=== PATIENT | female | born 1975 | race Caucasian/White ===

== ENCOUNTER 2018-04-16 09:37 | Emergency (ER) | payer OTHER ==
[~2018-04-16] VITALS: Ht 154.9 cm; Wt 94.8 kg
[2018-04-16 09:39] VITALS: BP 132/73
[2018-04-16] MEDS ORDERED: IV NORMAL SALINE 1000ML BAG 1,000 ML IV ONE (10:15)
[2018-04-16 10:44] LABS: BILIRUBIN,URINE NEGATIVE (NEG); CLARITY,URINE CLEAR; COLOR,URINE YELLOW; NITRITE,URINE NEGATIVE (NEG); PH,URINE 5.5; PROTEIN,URINE NEGATIVE (NEG-TRACE); UROBILINOGEN,URINE 0.2 mg/dL (0.2 mg/dL)
[2018-04-16 10:54] LABS: BASO # 0.1 x10^3/uL (0.0-0.2); BASO % 1 % (0-3); EOS # 0.3 x10^3/uL (0.0-0.7); EOS % 3 % (0-3); HEMATOCRIT 40.7 % (36.0-47.0); HEMOGLOBIN 14.2 g/dL (12.0-15.5); LYMPH % 19 % (24-48); MEAN CORPUSCULAR HEMOGLOBIN 31 pg (25-35); MEAN CORPUSCULAR HGB CONC 35 g/dL (31-37); MEAN CORPUSCULAR VOLUME 88 fL (79-100); MONO # 0.7 x10^3/uL (0.0-1.1); MONO % 6 % (0-9); NEUT # 7.6 x10^3uL (1.8-7.7); NEUT % 71 % (31-73); PLATELET COUNT 274 x10^3/uL (140-400); RED BLOOD COUNT 4.65 x10^6/uL (3.50-5.40); WHITE BLOOD COUNT 10.7 x10^3/uL (4.0-11.0)
[2018-04-16 11:04] LABS: CALCIUM 10.1 mg/dL (8.5-10.1); CREATININE 0.7 mg/dL (0.6-1.0); GFR 92.7
[2018-04-16 11:13] LABS: ALBUMIN 3.9 g/dL (3.4-5.0); TOTAL BILIRUBIN 0.6 mg/dL (0.2-1.0)
[2018-04-16 11:17] LABS: BACTERIA,URINE FEW /HPF (0-FEW); RBC,URINE 0 /HPF (0-2); SQUAMOUS EPITHELIAL CELL,UR FEW /LPF; WBC,URINE 0 /HPF (0-4)
--- NOTE | 2018-04-16 12:08 | RAD ---
Abdomen series including PA chest 04/16/2018. Reason for exam: Diarrhea and back pain. The chest film is compared with a study done on 02/28/2012. No free air is seen. Gas is present in a mixture of large and small bowel. There are some air-fluid levels on the upright view, but at least some of these are in the colon, consistent with a history of diarrhea. There is no evidence of obstruction. No abnormal masses or gas collections are seen. A single view of the chest shows no infiltrate or effusion. Heart size and pulmonary vascularity appear normal. IMPRESSION: Nonobstructive gas pattern. Lumbar spine 2 views: Alignment is normal. There is no loss of vertebral body height or other evidence for fracture. The intervertebral discs are not significantly narrowed. No destructive process is seen. IMPRESSION: No acute abnormality. Electronically signed by: Horacio Alcantar Jr., MD (04/16/2018 12:04 PM) [facility] [place]
--- NOTE | 2018-04-16 12:11 | PHYS DOC ---
Past Medical History Past Medical History: Diabetes-Type II, GERD, High Cholesterol, Other Additional Past Medical Histor: BLE NEUROPATHY Past Surgical History: Hysterectomy, Other Additional Past Surgical Histo: LEFT SHOULDER ROTATOR CUFF REPAIR Alcohol Use: None Drug Use: None Adult General Chief Complaint Chief Complaint: DIARRHEA HPI HPI Patient is a 42 year old [f__sex] who presents with [] Review of Systems Review of Systems Constitutional: Denies fever or chills [] Eyes: Denies change in visual acuity, redness, or eye pain [] HENT: Denies nasal congestion or sore throat [] Respiratory: Denies cough or shortness of breath [] Cardiovascular: No additional information not addressed in HPI [] GI: Denies abdominal pain, nausea, vomiting, bloody stools or diarrhea [] : Denies dysuria or hematuria [] Musculoskeletal: Denies back pain or joint pain [] Integument: Denies rash or skin lesions [] Neurologic: Denies headache, focal weakness or sensory changes [] Endocrine: Denies polyuria or polydipsia [] All other systems were reviewed and found to be within normal limits, except as documented in this note. Current Medications Current Medications Current Medications Medications (Trade) Dose Ordered Sig/Eusebio Start Time Stop Time Status Last Admin Dose Admin Sodium Chloride 1,000 ml @ 1,000 mls/hr 1X ONCE 04/16/18 10:15 04/16/18 11:14 DC 04/16/18 10:36 1,000 MLS/HR Allergies Allergies Allergies Coded Allergies Type Severity Reaction Last Updated Verified metoclopramide Allergy Intermediate PARANOID 04/16/18 Yes moxifloxacin Allergy Intermediate HIVES 04/16/18 Yes Physical Exam Physical Exam Constitutional: Well developed, well nourished, no acute distress, non-toxic appearance. [] HENT: Normocephalic, atraumatic, bilateral external ears normal, oropharynx moist, no oral exudates, nose normal. [] Eyes: PERRLA, EOMI, conjunctiva normal, no discharge. [] Neck: Normal range of motion, no tenderness, supple, no stridor. [] Cardiovascular:Heart rate regular rhythm, no murmur [] Lungs & Thorax: Bilateral breath sounds clear to auscultation [] Abdomen: Bowel sounds normal, soft, no tenderness, no masses, no pulsatile masses. [] Skin: Warm, dry, no erythema, no rash. [] Back: No tenderness, no CVA tenderness. [] Extremities: No tenderness, no cyanosis, no clubbing, ROM intact, no edema. [] Neurologic: Alert and oriented X 3, normal motor function, normal sensory function, no focal deficits noted. [] Psychologic: Affect normal, judgement normal, mood normal. [] Current Patient Data Vital Signs Vital Signs Date Time Temp Pulse Resp B/P (MAP) Pulse Ox O2 Delivery O2 Flow Rate FiO2 04/16/18 09:39 98.6 84 14 132/73 (92) 99 Room Air 98.6 Lab Values Laboratory Tests Test 04/16/18 10:29 04/16/18 10:30 Urine Collection Type Void Urine Color Yellow Urine Clarity Clear Urine pH 5.5 Urine Specific [place] 1.010 Urine Protein Negative mg/dL (NEG-TRACE) Urine Glucose (UA) Negative mg/dL (NEG) Urine Ketones (Stick) Negative mg/dL (NEG) Urine Blood Negative (NEG) Urine Nitrite Negative (NEG) Urine Bilirubin Negative (NEG) Urine Urobilinogen Dipstick 0.2 mg/dL (0.2 mg/dL) Urine Leukocyte Esterase Negative (NEG) Urine RBC 0 /HPF (0-2) Urine WBC 0 /HPF (0-4) Urine Squamous Epithelial Cells Few /LPF Urine Bacteria Few /HPF (0-FEW) White Blood Count 10.7 x10^3/uL (4.0-11.0) Red Blood Count 4.65 x10^6/uL (3.50-5.40) Hemoglobin 14.2 g/dL (12.0-15.5) Hematocrit 40.7 % (36.0-47.0) Mean Corpuscular Volume 88 fL (79-100) Mean Corpuscular Hemoglobin 31 pg (25-35) Mean Corpuscular Hemoglobin Concent 35 g/dL (31-37) Red Cell Distribution Width 13.0 % (11.5-14.5) Platelet Count 274 x10^3/uL (140-400) Neutrophils (%) (Auto) 71 % (31-73) Lymphocytes (%) (Auto) 19 % (24-48) L Monocytes (%) (Auto) 6 % (0-9) Eosinophils (%) (Auto) 3 % (0-3) Basophils (%) (Auto) 1 % (0-3) Neutrophils # (Auto) 7.6 x10^3uL (1.8-7.7) Lymphocytes # (Auto) 2.0 x10^3/uL (1.0-4.8) Monocytes # (Auto) 0.7 x10^3/uL (0.0-1.1) Eosinophils # (Auto) 0.3 x10^3/uL (0.0-0.7) Basophils # (Auto) 0.1 x10^3/uL (0.0-0.2) Sodium Level 141 mmol/L (136-145) Potassium Level 4.0 mmol/L (3.5-5.1) Chloride Level 105 mmol/L (98-107) Carbon Dioxide Level 23 mmol/L (21-32) Anion Gap 13 (6-14) Blood Urea Nitrogen 9 mg/dL (7-20) Creatinine 0.7 mg/dL (0.6-1.0) Estimated GFR (Cockcroft-Gault) 92.7 BUN/Creatinine Ratio 13 (6-20) Glucose Level 119 mg/dL (70-99) H Calcium Level 10.1 mg/dL (8.5-10.1) Total Bilirubin 0.6 mg/dL (0.2-1.0) Aspartate Amino Transferase (AST) 58 U/L (15-37) H Alanine Aminotransferase (ALT) 87 U/L (14-59) H Alkaline Phosphatase 96 U/L (46-116) Total Protein 8.0 g/dL (6.4-8.2) Albumin 3.9 g/dL (3.4-5.0) Albumin/Globulin Ratio 1.0 (1.0-1.7) Laboratory Tests 04/16/18 10:30 Laboratory Tests 04/16/18 10:30 EKG EKG [] Radiology/Procedures Radiology/Procedures []PATIENT: MXAIMILIAN ARCINIEGA IACCOUNT: [id number]#: [id number] : 1975 LOCATION: ER AGE: 42 SEX: F EXAM STATUS: REG ER ORD. PHYSICIAN: OSCAR BEJARANO APRN REASON: back pain, diarrhea PROCEDURE: ACUTE ABDOMEN SERIES Abdomen series including PA chest 04/16/2018. Reason for exam: Diarrhea and back pain. The chest film is compared with a study done on 02/28/2012. No free air is seen. Gas is present in a mixture of large and small bowel. There are some air-fluid levels on the upright view, but at least some of these are in the colon, consistent with a history of diarrhea. There is no evidence of obstruction. No abnormal masses or gas collections are seen. A single view of the chest shows no infiltrate or effusion. Heart size and pulmonary vascularity appear normal. IMPRESSION: Nonobstructive gas pattern. Lumbar spine 2 views: Alignment is normal. There is no loss of vertebral body height or other evidence for fracture. The intervertebral discs are not significantly narrowed. No destructive process is seen. IMPRESSION: No acute abnormality. Electronically signed by: Njama Alcantar Jr., MD (04/16/2018 12:04 PM) [facility] [place] DICTATED and SIGNED BY: NAJMA ALCANTAR Jr, MD DATE: 04/16/18 1202 Course & Med Decision Making Course & Med Decision Making Pertinent Labs and Imaging studies reviewed. (See chart for details) [] Dragon Disclaimer Dragon Disclaimer This electronic medical record was generated, in whole or in part, using a voice recognition dictation system. Departure Departure Impression: Primary Impression: Diarrhea Disposition: 01 HOME, SELF-CARE Condition: STABLE Referrals: OBEY LAMB MD (PCP) Patient Instructions: Diarrhea Additional Instructions: You may try taking [id number] Imodium to help with symptom relief. We did do cultures of your stool and we will call if there is a positive result. Continue to take your home medications as directed. Follow up with your primary care provider in 2 days if not improving or return to the emergency department if worsening. OSCAR BEJARANO APRN Apr 16, 2018 12:11
== END 2018-04-16 12:59 | disposition home or self-care (01) ==
LOC: ER 09:37
DX: R19.7 Diarrhea, unspecified (principal); E11.40 Type 2 diabetes mellitus with diabetic neuropathy, unspecified; K21.9 Gastro-esophageal reflux disease without esophagitis; E78.00 Pure hypercholesterolemia, unspecified; Z90.710 Acquired absence of both cervix and uterus; Z88.1 Allergy status to other antibiotic agents
CPT/HCPCS: 36415; 72100; 74022; 80053; 81001; 85025; 87045; 96360; 99285; J7030

== ENCOUNTER 2019-08-01 13:27 | Emergency (ER) | payer OTHER ==
[~2019-08-01] VITALS: Ht 154.9 cm; Wt 90.0 kg
[2019-08-01 15:02] VITALS: BP 151/82
[2019-08-01] MEDS ORDERED: DICYCLOMINE HCL 10 MG CAPSULE PO STA (15:51)
[2019-08-01] MEDS ORDERED: ONDANSETRON PF 4 MG/2 ML VIAL. IV ONE (16:00)
[2019-08-01] MEDS ORDERED: IV NORMAL SALINE 1000ML BAG 1,000 ML IV ONE (16:00)
--- NOTE | 2019-08-01 16:23 | PHYS DOC ---
Past Medical History Past Medical History: Asthma, Diabetes-Type II, Other Additional Past Medical Histor: neuropathy Past Surgical History: Hysterectomy, Tonsillectomy, Other Additional Past Surgical Histo: l shoulder, partial hysterectomy,deviated septum Smoking Status: Never Smoker Alcohol Use: Occasionally Drug Use: None Adult General Chief Complaint Chief Complaint: NAUSEA/VOMITING/DIARRHA [facility] HPI Patient is a 44 year old female who presents with nausea, vomiting, diarrhea this been ongoing since Tuesday. Denies fever. She also states she's been having left ear pain, and a cough and a runny nose. She states that she chronically has a cough and runny nose. She rates her pain is 1 out of 10 in severity and sharp. No history diabetes. Denies additional complaints. Complete ROS were reviewed and found to be within normal limits, except as d ocumented in the HPI Current Medications Current Medications Current Medications Medications (Trade) Dose Ordered Sig/Eusebio Start Time Stop Time Status Last Admin Dose Admin Dicyclomine HCl (Bentyl) 10 mg 1X STAT 08/01/19 15:51 08/01/19 15:54 DC 08/01/19 17:03 10 MG Ondansetron HCl (Zofran) 4 mg 1X ONCE 08/01/19 16:00 08/01/19 16:01 DC 08/01/19 17:03 4 MG Sodium Chloride 1,000 ml @ 1,000 mls/hr 1X ONCE 08/01/19 16:00 08/01/19 16:59 DC 08/01/19 16:00 1,000 MLS/HR Allergies Allergies Allergies Coded Allergies Type Severity Reaction Last Updated Verified metoclopramide Allergy Intermediate PARANOID 04/16/18 Yes moxifloxacin Allergy Intermediate HIVES 04/16/18 Yes Physical Exam Physical Exam Constitutional: Well developed, well nourished, no acute distress, non-toxic appearance. [] HENT: Normocephalic, atraumatic, bilateral external ears normal, left ear canal is erythematous and edematous, oropharynx moist, no oral exudates, nose normal. [] Eyes: PERRLA, EOMI, conjunctiva normal, no discharge. [] Neck: Normal range of motion, no tenderness, supple, no stridor. [] Cardiovascular:Heart rate regular rhythm, no murmur [] Lungs & Thorax: Bilateral breath sounds clear to auscultation [] Abdomen: Bowel sounds normal, soft, mild diffuse tenderness, no masses, no pulsatile masses. [] Skin: Warm, dry, no erythema, no rash. [] Back: No tenderness, no CVA tenderness. [] Extremities: No tenderness, no cyanosis, no clubbing, ROM intact, no edema. [] Neurologic: Alert and oriented X 3, normal motor function, normal sensory function, no focal deficits noted. [] Psychologic: Affect normal, judgement normal, mood normal. [] Current Patient Data Vital Signs Vital Signs Date Time Temp Pulse Resp B/P (MAP) Pulse Ox O2 Delivery O2 Flow Rate FiO2 08/01/19 15:02 98.1 77 16 151/82 (105) 97 Room Air 98.1 Lab Values Laboratory Tests Test 08/01/19 16:20 White Blood Count 8.7 x10^3/uL (4.0-11.0) Red Blood Count 5.02 x10^6/uL (3.50-5.40) Hemoglobin 15.1 g/dL (12.0-15.5) Hematocrit 43.6 % (36.0-47.0) Mean Corpuscular Volume 87 fL (79-100) Mean Corpuscular Hemoglobin 30 pg (25-35) Mean Corpuscular Hemoglobin Concent 35 g/dL (31-37) Red Cell Distribution Width 13.4 % (11.5-14.5) Platelet Count 377 x10^3/uL (140-400) Neutrophils (%) (Auto) 60 % (31-73) Lymphocytes (%) (Auto) 32 % (24-48) Monocytes (%) (Auto) 6 % (0-9) Eosinophils (%) (Auto) 1 % (0-3) Basophils (%) (Auto) 1 % (0-3) Neutrophils # (Auto) 5.2 x10^3/uL (1.8-7.7) Lymphocytes # (Auto) 2.8 x10^3/uL (1.0-4.8) Monocytes # (Auto) 0.5 x10^3/uL (0.0-1.1) Eosinophils # (Auto) 0.1 x10^3/uL (0.0-0.7) Basophils # (Auto) 0.1 x10^3/uL (0.0-0.2) POC Urine HCG, Qualitative Hcg negative (Negative) Sodium Level 140 mmol/L (136-145) Potassium Level 3.7 mmol/L (3.5-5.1) Chloride Level 103 mmol/L (98-107) Carbon Dioxide Level 26 mmol/L (21-32) Anion Gap 11 (6-14) Blood Urea Nitrogen 9 mg/dL (7-20) Creatinine 0.8 mg/dL (0.6-1.0) Estimated GFR (Cockcroft-Gault) 78.7 BUN/Creatinine Ratio 11 (6-20) Glucose Level 100 mg/dL (70-99) H Calcium Level 9.5 mg/dL (8.5-10.1) Total Bilirubin 0.6 mg/dL (0.2-1.0) Aspartate Amino Transferase (AST) 22 U/L (15-37) Alanine Aminotransferase (ALT) 34 U/L (14-59) Alkaline Phosphatase 109 U/L (46-116) Total Protein 8.6 g/dL (6.4-8.2) H Albumin 4.2 g/dL (3.4-5.0) Albumin/Globulin Ratio 1.0 (1.0-1.7) Laboratory Tests 08/01/19 16:20 Laboratory Tests 08/01/19 16:20 EKG EKG [] Radiology/Procedures Radiology/Procedures [] Course & Med Decision Making Course & Med Decision Making Pertinent Labs and Imaging studies reviewed. (See chart for details) Patient has L otitis externa. Will put on Cipro. Patient also appears to have a viral stomach bug. Will get Labs and give supportive care. Zofran helped. Will prescribe Zofran and Bentyl. Dragon Disclaimer Dragon Disclaimer This electronic medical record was generated, in whole or in part, using a voice recognition dictation system. Departure Departure Impression: Primary Impression: Otitis externa of left ear Additional Impression: Nausea and vomiting Disposition: 01 HOME, SELF-CARE Condition: STABLE Referrals: OBEY LAMB MD (PCP) Patient Instructions: Nausea and Vomiting, Otitis Externa Additional Instructions: Thank you for visiting [facility]. We appreciate you trusting us with your care. If any additional problems come up don't hesitate to return to visit us. Please follow up with your primary care provider so they can plan additional care if needed and know about the problem that you had. If symptoms worsen come back to the Emergency Department. Any concerning symptoms that start such as chest pain, shortness of air, weakness or numbness on one side of the body, running high fevers or any other concerning symptoms return to the ER. Scripts Ciprofloxacin Hcl (CIPROFLOXACIN HCL) 2.5 Ml Drops 3 DROP LEFT EAR BID for 10 Days, #1 BOT 0 Refills Prov: JEYSON ELMORE APRN 08/01/19 Ondansetron (ONDANSETRON ODT) 4 Mg Tab.rapdis 1 TAB PO PRN Q6-8HRS PRN for NAUSEA, #20 TAB Prov: JEYSON ELMORE APRN 08/01/19 Dicyclomine Hcl (DICYCLOMINE HCL) 10 Mg Capsule 1 CAP PO PRN Q6HRS PRN for PAIN, #20 CAP 0 Refills Prov: JEYSON ELMORE APRN 08/01/19 Problem Qualifiers Primary Impression: Otitis externa of left ear Otitis externa type: unspecified type Chronicity: acute Qualified Codes: H60.502 - Unspecified acute noninfective otitis externa, left ear Additional Impression: Nausea and vomiting Vomiting type: unspecified Vomiting Intractability: unspecified Qualified Codes: R11.2 - Nausea with vomiting, unspecified JEYSON ELMORE APRN Aug 01, 2019 16:23
[2019-08-01 16:56] LABS: BASO # 0.1 x10^3/uL (0.0-0.2); BASO % 1 % (0-3); CALCIUM 9.5 mg/dL (8.5-10.1); CREATININE 0.8 mg/dL (0.6-1.0); EOS # 0.1 x10^3/uL (0.0-0.7); EOS % 1 % (0-3); GFR 78.7; HEMATOCRIT 43.6 % (36.0-47.0); HEMOGLOBIN 15.1 g/dL (12.0-15.5); LYMPH # 2.8 x10^3/uL (1.0-4.8); LYMPH % 32 % (24-48); MEAN CORPUSCULAR HEMOGLOBIN 30 pg (25-35); MEAN CORPUSCULAR HGB CONC 35 g/dL (31-37); MEAN CORPUSCULAR VOLUME 87 fL (79-100); MONO # 0.5 x10^3/uL (0.0-1.1); MONO % 6 % (0-9); NEUT # 5.2 x10^3/uL (1.8-7.7); NEUT % 60 % (31-73); PLATELET COUNT 377 x10^3/uL (140-400); POTASSIUM 3.7 mmol/L (3.5-5.1); RED BLOOD COUNT 5.02 x10^6/uL (3.50-5.40); RED CELL DISTRIBUTION WIDTH 13.4 % (11.5-14.5); WHITE BLOOD COUNT 8.7 x10^3/uL (4.0-11.0)
[2019-08-01 17:02] LABS: ALBUMIN 4.2 g/dL (3.4-5.0); TOTAL BILIRUBIN 0.6 mg/dL (0.2-1.0); TOTAL PROTEIN 8.6 g/dL (6.4-8.2)
[2019-08-01] MEDS ORDERED: CIPR2.5D LEFT EAR (17:17)
[2019-08-01] MEDS ORDERED: DICY10CA3 PO (17:17)
[2019-08-01] MEDS ORDERED: ONDA4TAB12 PO (17:17)
== END 2019-08-01 17:40 | disposition home or self-care (01) ==
LOC: ER 13:27
DX: H60.502 Unspecified acute noninfective otitis externa, left ear (principal); R11.2 Nausea with vomiting, unspecified; R19.7 Diarrhea, unspecified; R05 Cough; R09.89 Other specified symptoms and signs involving the circulatory and respiratory systems; L53.9 Erythematous condition, unspecified; J45.909 Unspecified asthma, uncomplicated; E11.40 Type 2 diabetes mellitus with diabetic neuropathy, unspecified; Z90.710 Acquired absence of both cervix and uterus; Z90.89 Acquired absence of other organs; Z98.890 Other specified postprocedural states; Z88.1 Allergy status to other antibiotic agents; Z88.8 Allergy status to other drugs, medicaments and biological substances
CPT/HCPCS: 36415; 80053; 81025; 85025; 96361; 96374; 99284; J2405; J7030

== ENCOUNTER → 2021-03-16 | Outpatient (CLI) | payer BC ==
[~2021-03-16] MED LIST: CIPR2.5D2 LEFT EAR; DICY10CA3 PO; ONDA4TAB12 PO
--- NOTE | 2021-03-16 14:53 | RAD ---
XR CHEST 2V INDICATION: Reason: ASTHMA / Spl. Instructions: / History: . COMPARISON STUDY: None. FINDINGS: Lungs: Normal lung volume. No pulmonary mass or consolidation. The tracheobronchial tree and hilar st ructures are normal. Pleura: No pleural effusion or pneumothorax. Heart and Mediastinum: The cardiomediastinal silhouette is normal. The great vessels of the thorax ar e normal. Bones and Soft Tissues: Degenerative changes of the spine. IMPRESSION: No acute cardiopulmonary process. Electronically signed by: Prashanth Goodson MD (03/16/2021 2:51 PM) [id number]
== END ==
LOC: RAD 10:51
PROVIDERS: ATTEND Internal Medicine Pulmonary Disease
DX: J45.909 Unspecified asthma, uncomplicated (principal); M47.814 Spondylosis without myelopathy or radiculopathy, thoracic region
CPT/HCPCS: 71046

== ENCOUNTER → 2021-04-10 | Outpatient (CLI) | payer BC, OTHER ==
--- NOTE | 2021-04-10 13:55 | RAD ---
MR#: [id number] Date of Study: 04/10/2021 Ordering Physician: PATRICK NARANJO, Referring Physician: ROJAS YOUNGBLOOD Tech: MARCO ANTONIO Baez APPROVED REPORT Test Type: Exercise Stress Nurse/Tech: Francisco Javier Yusuf RN Test Indications: Dyspnea on Exertion Cardiac History: See EMR. Medications: See EMR. Medical History: DM, Asthma, X-Smoker=Quit 20yrs ago, See EMR. Resting ECG: SR Resting Heart Rate: 72 bpm Resting Blood Pressure: 136/81mmHg Pretest Chest Pain: No chest pain Nurse/Tech Notes Lungs CTA, Heart tones regular. Consent: The procedure was explained to the patient in lay terms. Informed consent was witnessed. Amish eout was entered into [employer]. History and Stress Test performed by RT Nicolle (R) (N) Pharm. Details Pharmacologic stress testing was performed using 0.4mg per 5ml of regadenoson given intravenously ove r 7-10 seconds. Stress Symptoms No chest pain or symptoms. POST EXERCISE Reason for Termination: Reached target heart rate Target HR: Yes Max HR: 158 bpm 105% of Maximum Predicted HR: 150 bpm Exercise duration: 8:30 min:sec, 3 Stage Exercise capacity: 10.0METs Max Blood Pressure: 162/88mmHg Blood Pressure response to exercise: Normal blood pressure response during stress. Heart Rate response to exercise: WNL Chest Pain: No. Arrhythmia: No. ST Change: No. INTERPRETATION Stress EKG Conclusion: Baseline EKG showed sinus rhythm. No ischemic changes at peak stress. No arr hythmias. Imaging Protocol IMAGE PROTOCOL: Rest Tc-99m/stress Tc-99m 1 day Rest: Stress: Viability: Radiopharm.Tc99m McjqocsllBs74r Sestamibi Nqdi73iIl 33mCi Duration 15min. 13min. Img Date 04/10/2021 04/10/2021 Inj-Img Rwum77wts. 60min. Rest Admin Site:IV - Left HandAdministrator:MARCO ANTONIO Baez Stress Admin Site: IV - Left HandAdministrator: Jacek Tim, RT (R)(N) STRESS DATA End Diast. Vol.82.0mlLVEDV index BSA42.0ml End Syst. Vol.18.0mlLVESV index BSA9.0ml Myocardial Ofev242.0gEject. Oiuqyuwu20.0% Stress Scores Regional WT0.00Summed WT0.00 Regional WM0.00Summed WM0.00 Study quality was good. Left Ventricular size was Normal at Rest and Stress. Lung uptake was . Left Ventricular ejection fraction is 79%. The rest and stress images show normal perfusion, normal contraction and thickening. LV Perf. Quant 17 Seg. SSS8.00 17 Seg. SRS7.00 17 Seg. SDS2.00 Stress Defect Extent (% LAD)8.10Rest Defect Extent (% LAD)16.90Rev. Defect Extent (% LAD)0.00 Stress Defect Extent (% LCX) 36.30Rest Defect Extent (% LCX)5.00Rev. Defect Extent (% LCX)22.50 Stress Defect Extent (% RCA)0.00Rest Defect Extent (% RCA)0.00Rev. Defect Extent (% RCA)0.00 Stress Defect Extent (% FAM)11.70Rest Defect Extent (% FAM)8.70Rev. Defect Extent (% FAM)3.90 Conclusion 1. Treadmill exercise cardioisotope stress test did not show any evidence of ischemia or infarct. 2. Normal left ventricular systolic function with ejection fraction calculated at 79%. 3. Low risk for cardiac events. Signed by : Abhi Whitfield, Electronically Approved : 04/10/2021 13:54:26
--- NOTE | 2021-04-10 16:25 | RAD ---
MR#: [id number] Date of Study: 04/10/2021 Ordering Physician: PATRICK NARANJO, Referring Physician: PATRICK NARANJO, Tech: Raphael Perez MBA, RDMS, RVT, RDCS, RTR APPROVED REPORT Patient Location : OUT-PATIENT Indications Lower Extremity Pain : Bilateral Findings Grayscale imaging, spectral waveform and color duplex analysis was performed bilateral lower extremit ies. The right greater saphenous vein measured 5.4 mm the saphenofemoral junction and did not show a ny reflux. The left greater saphenous vein measured 4.9 mm at the saphenofemoral junction and did no t show any reflux. The lesser saphenous vein bilaterally did not show any reflux. Critical Notification Critical Value: No <Conclusion> No significant reflux involving bilateral greater and lesser saphenous veins. Signed by : Abhi Whitfield, Electronically Approved : 04/10/2021 16:24:51
== END ==
LOC: NM 09:05
PROVIDERS: ATTEND Internal Medicine Cardiovascular Disease
DX: R06.00 Dyspnea, unspecified (principal); M79.605 Pain in left leg; M79.604 Pain in right leg
CPT/HCPCS: 78452; 93017; 93970; A9500

== ENCOUNTER → 2021-04-20 | Outpatient (CLI) | payer BC ==
--- NOTE | 2021-04-22 14:54 | SLEEP ---
DATE OF STUDY: 04/21/2021 POLYSOMNOGRAM REPORT OBJECTIVE: The patient is a 45-year-old female with excessive somnolence and possible sleep apnea. Height 61 inches, weight 205 pounds, body mass index 38.7. Alcalde sleep score 7. INTERPRETATION: Respiratory monitoring shows a total of 90 events for an apnea-hypopnea index of 10.9 events per hour. The minimum oxygen saturation is 81%. No significant cardiac arrhythmias are observed. IMPRESSION: Abnormal home polysomnogram demonstrating obstructive sleep apnea and hypopnea. RECOMMENDATIONS: 1. The patient should be placed on a variable CPAP machine or alternatively return to the lab for an in-lab titration study. 2. She should pursue weight loss and avoid sedatives and alcohol. Thank you for letting us help with the patient's care. ANGELO/POLINA DR: Manfred TID: [id number] CC: MEHNAZ MELENDEZ MD, OBEY LAMB MD
== END ==
LOC: RT 10:27
PROVIDERS: ATTEND Internal Medicine Pulmonary Disease
DX: G47.33 Obstructive sleep apnea (adult) (pediatric) (principal)
CPT/HCPCS: G0399